=== PATIENT | female | born 1990 | race Caucasian/White ===

== ENCOUNTER 2018-09-08 13:00 | Observation (INO) | payer OTHER ==
[~2018-09-08] VITALS: Ht 147.3 cm; Wt 61.2 kg
[~2018-09-08 13:00] MED LIST: RINGERS SOLUTION,LACTATED 1,000 ML IV ONE
[2018-09-08 13:15] VITALS: BP 121/72
== END 2018-09-08 13:35 | disposition home or self-care (01) ==
LOC: 4S 13:00
PROVIDERS: ADMIT Obstetrics & Gynecology; ATTEND Obstetrics & Gynecology
DX: O41.8X30 Other specified disorders of amniotic fluid and membranes, third trimester, not applicable or unspecified (principal); Z3A.38 38 weeks gestation of pregnancy
CPT/HCPCS: 59025; 76805; G0378; J7120

== ENCOUNTER 2018-09-13 15:24 | Observation (INO) | payer OTHER ==
[~2018-09-13] VITALS: Ht 147.3 cm; Wt 61.9 kg
[2018-09-21 06:56] VITALS: BP 120/76
[2018-09-21] MEDS ORDERED: PNV11TAB PO (06:59)
== END 2018-09-21 10:55 | disposition home or self-care (01) ==
LOC: 4S 09-21 06:16
PROVIDERS: ADMIT Obstetrics & Gynecology; ATTEND Obstetrics & Gynecology
DX: O62.9 Abnormality of forces of labor, unspecified (principal); Z3A.39 39 weeks gestation of pregnancy
CPT/HCPCS: 59025; G0378

== ENCOUNTER 2018-09-22 01:10 | Inpatient (IN) | payer OTHER ==
[~2018-09-22] VITALS: Ht 172.7 cm; Wt 62.1 kg
[~2018-09-22 01:10] MED LIST changes: +PNV11TAB PO; -RINGERS SOLUTION,LACTATED 1,000 ML IV ONE
[2018-09-22 01:46] VITALS: BP 134/84
[2018-09-22] MEDS ORDERED: RINGERS SOLUTION,LACTATED 1,000 ML IV PRN (06:48)
[2018-09-22] MEDS ORDERED: OXYTOCIN 30 UNITS/LACT RINGERS 500 ML IV ONE (06:48)
[2018-09-22] MEDS ORDERED: MISOPROSTOL 25 MCG TABLET VG SCH (07:00)
[2018-09-22] MEDS ORDERED: METOCLOPRAMIDE HCL 5 MG/ML 2 ML VIAL IVP PRN (07:00)
[2018-09-22] MEDS ORDERED: CITRIC ACID/SODIUM CITRATE 30 ML SOLUTION UDCUP PO PRN (07:00)
[2018-09-22 07:25] LABS: BASOPHILS % (AUTO) 0.2 % (0.0-2.0); EOSINOPHILS % (AUTO) 0 % (1.0-6.0); HEMATOCRIT 32.8 % (36-46); HEMOGLOBIN 11.3 g/dL (12.0-16.0); LYMPHOCYTES # (AUTO) 1.2 K/uL (1.0-4.8); MEAN CORPUSCULAR HEMOGLOBIN 29.4 pg (26.0-34.0); MEAN CORPUSCULAR HGB CONC 34.4 G/dL (31.0-37.0); MEAN CORPUSCULAR VOLUME 85 fL (80-100); MONOCYTES # (AUTO) 1.2 K/uL (0.1-1.0); MONOCYTES % (AUTO) 4.6 % (2.0-9.0); NEUTROPHILS # (AUTO) 22.5 K/uL (1.8-7.7); PLATELET COUNT (AUTO)-OB 212 K/uL (150-450); RED BLOOD CELL COUNT(AUTO) 3.83 MIL/uL (4.00-5.20); RED CELL DISTRIBUTION WIDTH 13.4 % (11.5-14.5)
[2018-09-22 07:28] LABS: NEUTROPHILS % (AUTO) 90.2 % (40.0-70.0)
[2018-09-22] MEDS: FentaNYL CITRATE-PF 100 MCG/2 ML VIAL IVP PRN ×2 (07:38→07:53)
[2018-09-22] MEDS: RINGERS SOLUTION,LACTATED 1,000 ML IV SCH ×4 (07:39→19:48)
[2018-09-22] MEDS ORDERED: OXYGEN THERAPY IH SCH ×3 (08:00→20:00)
[2018-09-22] MEDS ORDERED: ROPIVACAINE HCL/PF 0.2% 100 ML ED ONE ×2 (10:43→14:35)
[2018-09-22] MEDS ORDERED: OXYTOCIN 10 UNITS/ML VIAL IM ONE (12:00)
[2018-09-22] MEDS ORDERED: 0.9% SODIUM CHLORIDE 10 ML VIAL IVP ONE (12:00)
[2018-09-22] MEDS ORDERED: OXYTOCIN 30 UNITS/LACT RINGERS 500 ML IV PRN (12:27)
[2018-09-22] MEDS ORDERED: AMPICILLIN SODIUM 2 GM/NS 100 ML IV SCH (16:15)
[2018-09-22] MEDS ORDERED: ACETAMINOPHEN 325 MG TABLET PO ONE (16:15)
[2018-09-22] MEDS ORDERED: ONDANSETRON HCL 4 MG/2 ML VIAL IVP PRN ×3 (16:30→19:00)
[2018-09-22] MEDS ORDERED: ACETAMINOPHEN 650 MG RECTAL SUPPOSITORY PR ONE (16:30)
[2018-09-22] MEDS ORDERED: MORPHINE SULFATE/PF 0.5 MG/ML 10 ML AMP ONE (17:28)
[2018-09-22] MEDS ORDERED: FentaNYL CITRATE-PF 100 MCG/2 ML VIAL ONE (17:28)
[2018-09-22] MEDS ORDERED: LIDOCAINE/PF 2% 5 ML VIAL ONE (17:29)
[2018-09-22] MEDS ORDERED: ACETAMINOPHEN 1000 MG/ISO-OSM 100 ML IV ONE (17:29)
[2018-09-22] MEDS ORDERED: METOCLOPRAMIDE HCL 5 MG/ML 2 ML VIAL IVP ONE (17:30)
[2018-09-22] MEDS ORDERED: CITRIC ACID/SODIUM CITRATE 30 ML SOLUTION UDCUP PO ONE (17:30)
[2018-09-22] MEDS ORDERED: GUM MASTIC/STORAX/MSAL/ALCOHOL LIQUID 0.67 ML VIAL TP ONE (18:18)
[2018-09-22] MEDS ORDERED: MORPHINE SULFATE 10 MG/ML SYRINGE IVP PRN ×2 (18:45→19:00)
[2018-09-22] MEDS ORDERED: DiphenhydrAMINE HCL 50 MG/ML VIAL IVP PRN ×2 (18:45→19:00)
[2018-09-22] MEDS ORDERED: MORPHINE SULFATE 2 MG/ML SYRINGE IVP PRN ×2 (18:45)
[2018-09-22] MEDS ORDERED: NALBUPHINE HCL 10 MG/ML VIAL IVP PRN ×3 (18:45→19:00)
[2018-09-22] MEDS ORDERED: DEXAMETHASONE SOD PHOS 4 MG/ML VIAL IVP PRN (18:45)
[2018-09-22] MEDS ORDERED: FentaNYL CITRATE-PF 100 MCG/2 ML VIAL IVP PRN ×3 (18:45)
[2018-09-22] MEDS ORDERED: MEPERIDINE-PF 25 MG/ML VIAL IVP PRN (18:45)
[2018-09-22] MEDS ORDERED: NALOXONE HCL 0.4 MG/ML VIAL IVP PRN (19:00)
[2018-09-22] MEDS ORDERED: RINGERS SOLUTION,LACTATED 1,000 ML IV ONE ×2 (19:19→19:40)
[2018-09-22] MEDS ORDERED: OXYTOCIN 20 UNITS/LACT RINGERS 1,000 ML IV ONE (19:26)
[2018-09-22] MEDS ORDERED: OXYTOCIN 20 UNITS/LACT RINGERS 1,000 ML IV SCH (19:37)
[2018-09-22] MEDS ORDERED: MEASLES/MUMPS/RUBELLA VACCINE, LIVE 0.5 ML/VIAL SQ ONE (19:45)
[2018-09-22] MEDS ORDERED: LANOLIN 7 GM OINTMENT TP PRN (19:45)
[2018-09-23] MEDS: ACETAMINOPHEN 1000 MG/ISO-OSM 100 ML IV SCH ×2 (02:26→10:15)
[2018-09-23] MEDS: FentaNYL CITRATE-PF 100 MCG/2 ML VIAL IVP PRN ×2 (05:39→08:45)
[2018-09-23 05:46] LABS: BASOPHILS % (AUTO) 0.1 % (0.0-2.0); EOSINOPHILS % (AUTO) 0 % (1.0-6.0); HEMATOCRIT 29.7 % (36-46); HEMOGLOBIN 10.5 g/dL (12.0-16.0); LYMPHOCYTES # (AUTO) 1.2 K/uL (1.0-4.8); LYMPHOCYTES % (AUTO) 6.9 % (22.0-44.0); MEAN CORPUSCULAR HEMOGLOBIN 29.9 pg (26.0-34.0); MEAN CORPUSCULAR HGB CONC 35.2 G/dL (31.0-37.0); MEAN CORPUSCULAR VOLUME 85 fL (80-100); MONOCYTES % (AUTO) 5.6 % (2.0-9.0); NEUTROPHILS # (AUTO) 15.5 K/uL (1.8-7.7); PLATELET COUNT (AUTO)-OB 182 K/uL (150-450); RED CELL DISTRIBUTION WIDTH 13.6 % (11.5-14.5)
[2018-09-23 05:56] LABS: NEUTROPHILS % (AUTO) 87.4 % (40.0-70.0)
[2018-09-23] MEDS: RINGERS SOLUTION,LACTATED 1,000 ML IV SCH ×2 (10:15→18:26)
[2018-09-23] MEDS: MAGNESIUM HYDROXIDE SUSPENSION 30 ML UDCUP PO PRN ×2 (15:42→22:08)
[2018-09-23] MEDS: IBUPROFEN 800 MG TABLET PO PRN ×2 (15:43→22:07)
[2018-09-23] MEDS: ACETAMINOPHEN/CODEINE 300-30 MG TABLET PO PRN (18:45)
[2018-09-23] MEDS ORDERED: IBUPROFEN 800 MG TABLET PO PRN (19:45)
[2018-09-23] MEDS ORDERED: ACETAMINOPHEN/CODEINE 300-30 MG TABLET PO PRN (19:45)
[2018-09-24] MEDS: IBUPROFEN 800 MG TABLET PO PRN ×3 (03:56→21:28)
[2018-09-24] MEDS: ACETAMINOPHEN/CODEINE 300-30 MG TABLET PO PRN ×2 (10:21→21:28)
[2018-09-25] MEDS ORDERED: IBUP-2070 PO (07:32)
[2018-09-25] MEDS ORDERED: PERCT PO (07:49)
== END 2018-09-25 10:30 | disposition home or self-care (01) | DRG 788 ==
LOC: 4S 01:10 → OBSVTOIN 01:10 → 4S 21:06
PROVIDERS: ADMIT Obstetrics & Gynecology; ATTEND Obstetrics & Gynecology
PROC: 10D00Z1 Extraction of Products of Conception, Low, Open Approach (ICD-10-PCS; principal; 2018-09-23)
DX: O76 Abnormality in fetal heart rate and rhythm complicating labor and delivery (principal); O62.2 Other uterine inertia; O77.0 Labor and delivery complicated by meconium in amniotic fluid; Z3A.40 40 weeks gestation of pregnancy; Z37.0 Single live birth
CPT/HCPCS: 86850; 86900; 86901; J0131; J0290; J0690; J2274; J2590; J2765; J2795; J3010; J3490; J7120